=== PATIENT | female | born 1990 | race Two or more races ===

== ENCOUNTER 2017-11-21 11:08 | Emergency (ER) | payer MEDICAID ==
[~2017-11-21] VITALS: Ht 157.5 cm; Wt 60.3 kg
[2017-11-21 13:10] VITALS: BP 125/48
[2017-11-21] MEDS ORDERED: traMADol HCL 50 MG TAB PO ONE (13:45)
== END 2017-11-21 13:46 | disposition home or self-care (01) ==
LOC: ER 11:08
DX: H10.32 Unspecified acute conjunctivitis, left eye (principal); F17.210 Nicotine dependence, cigarettes, uncomplicated; J45.909 Unspecified asthma, uncomplicated; Z91.030 Bee allergy status

== ENCOUNTER 2020-04-26 18:11 | Emergency (ER) | payer MEDICAID, OTHER ==
[~2020-04-26] VITALS: Ht 157.5 cm; Wt 60.3 kg
[2020-04-26 18:17] VITALS: BP 145/96
== END 2020-04-26 19:47 | disposition left against medical advice (07) ==
LOC: ER 18:11
DX: R45.851 Suicidal ideations (principal); Z53.21 Procedure and treatment not carried out due to patient leaving prior to being seen by health care provider